=== PATIENT | male | born 1945 | race Hispanic/Latino ===

== ENCOUNTER → 2018-11-20 | Day surgery (SDC) | payer MEDICARE, OTHER ==
[2018-11-18 16:36] LABS: BASOPHILS % 0.5 % (0.0-1.0); EOSINOPHILS # (AUTO) 0.3 (0.0-0.4); LYMPHOCYTES # (AUTO) 1.8 (1.0-3.2); LYMPHOCYTES % 28.3 % (18.0-39.1); MEAN CORPUSCULAR HGB CONC 33.3 g/dL (31-35); MEAN CORPUSCULAR VOLUME 87.1 fL (81-99); MONOCYTES # (AUTO) 0.6 (0.2-0.8); MONOCYTES % 9.2 % (4.4-11.3); NEUTROPHILS # (AUTO) 3.6 (2.1-6.9); NEUTROPHILS % 56.5 % (38.7-80.0); PLATELET COUNT 175 x10e3/uL (140-360); RED BLOOD COUNT 4.82 x10e6/uL (4.3-5.7); RED CELL DISTRIBUTION WIDTH 14.9 % (11.7-14.4)
--- NOTE | 2018-11-18 16:49 | Diagnostic Imaging Report ---
EXAMINATION: CHEST 2 VIEWS INDICATION: Pre-operative COMPARISON: None FINDINGS: LINES/TUBES:None LUNGS:The lungs are well-inflated. No focal consolidation or pulmonary edema. PLEURA:No pleural effusion or pneumothorax. MEDIASTINUM:The heart is enlarged. BONES/SOFT TISSUES:No acute osseous injury. ABDOMEN:No free air under the diaphragm. IMPRESSION: No focal pneumonia or pulmonary edema. Cardiomegaly. Signed by: Jj Alfaro MD on 11/18/2018 4:46 PM
[2018-11-18 16:51] LABS: ANION GAP 13.7 mmol/L (8-16); BLOOD UREA NITROGEN 15 mg/dL (7-26); BUN/CREATININE RATIO 19 (6-25); CALCIUM 9.2 mg/dL (8.4-10.2); CARBON DIOXIDE 26 mmol/L (22-29); CHLORIDE 102 mmol/L (98-107); CREATININE, SERUM 0.77 mg/dL (0.72-1.25); EST GLOMERULAR FILTRATION RATE > 60 ML/MIN (60-); GLUCOSE 103 mg/dL (74-118); POTASSIUM 3.7 mmol/L (3.5-5.1); SODIUM 138 mmol/L (136-145)
[~2018-11-20] MED LIST: ASPIR 8181 MG PO; B&O 60MG R/S 60 MG SUPP PR ONE; DOXAZOSIN MESYLA2 MG PO; FENTANYL CITRATE/PF 100MCG/2 ML INJ ONE; FLOMAX0.4 MG PO; GENTAMICIN 80MG/NS 100 ML 200 ML IV ONE; HYDRALAZINE HCL 20 MG/ML VIAL ONE; HYDROCHLOROTHIA25 MG PO; IOPAMIDOL 610MG/1ML 300 MG/ML VIAL IV ONE; LIDOCAINE HCL 2% JELLY 5 ML TUBE ONE; LIDOCAINE HCL 2% LOCAL INJ 5 ML SDV VIAL INJ ONE; LOSARTAN POTAS100 MG PO; MIDAZOLAM HCL 2 MG/2 ML VIAL ONE; MORPHINE SULFATE 2 MG/ML SYR 1ML ONE; NAPROXEN250 MG PO; ONDANSETRON HCL INJ 2MG/ML 2ML 2 MG/ML VIAL ONE; PIPER-TAZ 3.375 GM 0 ML ONE; PIPER-TAZ 3.375 GM 50 ML ONE; PROPOFOL IV EMULSION 10 MG/ML 20 ML VIAL ONE; SEVOFLURANE INHAL SOLN 250 ML PEN BTL ONE
--- OUTSIDE RECORDS SUMMARY | 2018-11-20 06:51 | XMS REPORT ---
Author Author [facility] Address Unknown Phone Unavailable Care Team Providers Care Cyber Policy And Strategy Planner Name Role Phone PIETER LINDQUIST Unavailable Unavailable Problems This patient has no known problems. Allergies, Adverse Reactions, Alerts This patient has no known allergies or adverse reactions. Medications This patient has no known medications. Results Test Description Test Time Test Comments Text Results Atomic Results Result Comments CHEST 2 VIEWS 2018-11-18 16:45:00 [place] [address] Patient Name: HIEN MARTIN MR #: [id number] : 1945 Age/Sex: 72/M Req #: [id number] Adm Physician: Ordered by: PIETER LINDQUIST MD Report #: [id number] Location: OR Room/Bed: Procedure: [id number] DX/CHEST 2 VIEWS Exam Date: 11/18/18 Exam Time: 1620 REPORT STATUS: Signed EXAMINATION: CHEST 2 VIEWS INDICATION: Pre-operative COMPARISON: None FINDINGS: LINES/TUBES:None LUNGS:The lungs are well-inflated. No focal consolidation or pulmonary edema. PLEURA:No pleural effusion or pneumothorax. MEDIASTINUM:The heart is enlarged. BONES/SOFT TISSUES:No acute osseous injury. ABDOMEN:No free air under the diaphragm. IMPRESSION: No focal pneumonia or pulmonary edema. Cardiomegaly. Signed by: Aayush Alfaro MD on 11/18/2018 4:46 PM Dictated By: AAYUSH ALFARO MD [id number] Transcribed By: KAYLIN on 11/18/18 1646 COPY TO: PIETER LINDQUIST MD
--- NOTE | 2018-11-20 07:40 | NUR ---
SPIRITUAL CARE - Pre-Surgery Assessment: Pt in bed. Pt's and daughter at bedside. Pt reported supportive attention from family and friends. Intervention: I provided pastoral presence, hospitality, and sympathetic listening. I acquainted pt with availability of commercial loan administrator while hospitalized. Outcome: Pt expressed appreciation for visit. No need for follow up indicated at this time. TAWANNA Steinlain Spiritual Care Department O: [phone] Pager: [phone] ([phone] number calling from)
[2018-11-20 11:00] VITALS: BP 109/65
--- NOTE | 2019-01-12 04:55 | Operative Report ---
DATE OF PROCEDURE: 11/20/2018 SURGEON: Julian Dillard MD PREOPERATIVE DIAGNOSES: 1. Elevated PSA. 2. Gross hematuria. 3. History of urolithiasis. POSTOPERATIVE DIAGNOSES: 1. Elevated PSA. 2. Gross hematuria. 3. History of urolithiasis. 4. Right partial ureteral duplication. OPERATION PERFORMED: 1. Transrectal sonography interpretation (separate procedure performed), no radiologist present. 2. Ultrasonographic guidance interpretation, no radiologist present. 3. Transrectal needle biopsies of the prostate (separate procedure performed for the elevated PSA). 4. Cystourethroscopy with bilateral ureteral catheterization and retrograde ureteropyelography (separate procedure performed for the hematuria and urolithiasis). 5. Interpretation of retrograde ureteropyelography. 6. Supervision of fluoroscopy, no radiologist present. ANESTHESIA: General. COMPLICATIONS: None. CLINICAL SUMMARY: Jimmy Bourgeois is a 72-year-old man with elevated PSA, hematuria, and stone history. He is brought for the above procedures. He is aware of the risks of bleeding, infection, injury to adjacent structures, need for additional procedures, and elected to proceed. OPERATIVE PROCEDURE IN DETAIL: Informed consent was verified. iJmmy Bourgeois was properly identified, taken to the operating room, and placed on the cystoscopy table in supine position. Anesthesia was uneventfully begun. The patient was then carefully and gently repositioned in dorsal lithotomy position and real-time ultrasonography of the prostate was performed. Interpretation of transrectal sonography. The patient's prostate was very large measuring 104 mL. There were calcifications noted in the junction between the transitional zone and peripheral zone posteriorly as wall as in the periurethral area. No suspicious hypoechoic lesions were identified. There was no capsular abnormality. Seminal vesicles were unremarkable. With ultrasonographic guidance, needle biopsies of the prostate were taken. Multiple biopsies were taken at each of 6 locations. These were differentiated in the containers between right versus left and between the base versus mid versus apex. After we obtained all biopsies, the patient's genitalia were prepared and draped in usual sterile fashion. The cystoscope sheath with the visual obturator in place was atraumatically inserted into the patient's urethra, was guided down unremarkable distal urethra through a wide caliber nonobstructing stricturing at the bulbar region through the prostate bed, which was significant for a long prostate bed with bilateral prostatic hypertrophy with kissing lateral lobes, visual obstruction along the urethra. There was a small median lobe with some faint sand on it. This median lobe was friable and could be the etiology of the patient's hematuria. Panendoscopy of the urinary bladder revealed grade 2 trabeculations, but no tumors, no stones, and no diverticula, normally positioned configured ureteral orifices were identified. An 8-Slovenian catheter was used to cannulate each ureter and retrograde ureteral pyelograms were performed. Interpretation of retrograde ureteropyelography contrast was instilled in retrograde fashion bilaterally. J hooking was noted bilaterally. He has right partially ureteral duplication with the bifurcation at the junction between the proximal and middle thirds of the ureter. There were no suspicious lesions and no tumors and no stones. Unobstructed drainage was observed bilaterally fluoroscopically. The patient's bladder was drained. Cystoscope was withdrawn. Belladonna and opium suppository were placed revealing 50 g prostate, that is smooth and nonfluctuant without any nodules. The patient was then uneventfully reversed from anesthesia and taken to recovery room in stable condition. Explicit postop instructions were given. We will follow the patient up in the office. We will place the patient on Proscar in addition to his alpha-florin therapy in order to try to shrink this very large prostate. Julian Dillard MD [place]/MODL /[id number] cc: Jose Armando Thrasher MD
== END | disposition home or self-care (01) ==
LOC: OR 06:48
PROVIDERS: ATTEND Urology
DX: N42.31 Prostatic intraepithelial neoplasia (principal); Q62.5 Duplication of ureter; N35.912 Unspecified bulbous urethral stricture, male; N32.89 Other specified disorders of bladder; N42.89 Other specified disorders of prostate; Z87.442 Personal history of urinary calculi; G47.33 Obstructive sleep apnea (adult) (pediatric); I10 Essential (primary) hypertension; Z88.0 Allergy status to penicillin; Z01.810 Encounter for preprocedural cardiovascular examination; Z01.812 Encounter for preprocedural laboratory examination; Z01.818 Encounter for other preprocedural examination; Z79.82 Long term (current) use of aspirin; Z87.891 Personal history of nicotine dependence
CPT/HCPCS: 36415; 52005; 55700; 71046; 74420; 76872; 76998; 80048; 85025; 88305; 93005; C1758; J0360; J1580; J2001 ×2; J2250; J2270; J2405; J2543; J2704; J3010; Q9967